=== PATIENT | female | born 1955 | race African-American/Black ===

== ENCOUNTER → 2019-06-06 | Day surgery (SDC) | payer OTHER ==
[~2019-06-06] VITALS: Ht 160 cm; Wt 83.0 kg
[~2019-06-06] MED LIST: ADULT ASPIRIN R81 MG PO; ASA81BEC PO; CARDIZEM SR 60M60 MG PO; COZAAR 25 MG TA25 M1 PO; CYCLOBENZAPRINE5 MG PO; GABAPENTIN600 M1 PO; NITROSTAT0.4 M1 SUBLING; OMEPRAZOLE 20 M20 M1 PO; PERCOCET 7.5-31 EAC1 PO; PLAQUENIL200 MG PO; TAMBOCOR 100 M100 M1 PO; VENLAFAXINE HC150 M1 PO; VOLTAREN GEL 1100 G2 TOP
--- NOTE | ~2019-06-06 | O ---
[facility] [place] [address] OPERATIVE REPORT Name: TOBIAS PIRES Room #: REG [facility].#: [id number] Admission: 06/06/19 Attend Phys: Samuel Richardson MD Discharge: Date of : 59 Report #: [id number] THIS REPORT FOR: cc: Lucia Panchal, Samuel Whitmore MD ~ CC: Samuel Panchal DATE OF SERVICE: 06/06/2019 PREOPERATIVE DIAGNOSIS: Right talonavicular and subtalar joint osteoarthritis. POSTOPERATIVE DIAGNOSIS: Right talonavicular and subtalar joint osteoarthritis. PROCEDURE: Right talonavicular and subtalar arthrodesis. SURGEON: Dr. Samuel Richardson. APPRENTICESHIP REPRESENTATIVE: Abeba Cotton. ANESTHESIA: General. ESTIMATED BLOOD LOSS: Minimal. DRAINS: No drains. TOURNIQUET TIME: One hour. COMPLICATIONS: There were no complications. DESCRIPTION OF PROCEDURE: The patient brought to the operating room where she was placed under general anesthesia. Once under adequate general anesthesia, her right lower extremity was prepped and draped in sterile manner. The extremity was elevated, exsanguinated, tourniquet placed 300 mmHg. A lateral incision 3 cm in length was made over the sinus tarsi. This was dissected down through soft tissue to the lateral sinus tarsi. The joint capsule was then incised and the fat pad elevated exposing the subtalar joint. Subtalar joint was then prepared in a sequential manner removing any cartilage from the joint with osteotomes, curettes and subsequently a bur to prepare the joint. Once completed, a dorsal incision 4 cm in length was made overlying the talonavicular joint. This was dissected down through soft tissue to the dorsum of the talonavicular joint. The osteophytes were removed. The talonavicular joint was then prepared utilizing osteotomes, curettes and a emme in sequential fashion to prepare the joint. The joint was then fenestrated as well with a K-wire. The wounds were then irrigated copiously. Signafuse graft was then placed in the [facility] [address] [place] [address] OPERATIVE REPORT Name: TOBIAS PIRES Room #: REG [facility]..#: [id number] Admission: 06/06/19 Attend Phys: Samuel Richardson MD Discharge: Date of : 59 Report #: [id number] subtalar joint and the talonavicular joints. Fixation across the joints was then achieved with two 7.3 mm cannulated screws placed across the subtalar joint. Three 4.5 mm cannulated screws were placed across the talonavicular joint. Fluoroscopy was used throughout the case to verify the position to be satisfactory. Once complete, the wounds were irrigated copiously and closed with 2-0 Vicryl in the deep and subcutaneous tissues and rose were used for the skin. The wounds were dressed with Xeroform, 4 x 4s, and sterile soft compressive dressing was placed. Tourniquet was let down at approximately 1 hour. Toes were pink and warm with good capillary refill. There were no complications from the procedure. The patient tolerated the procedure well and went to the recovery room without incident. By: [id number] Samuel Richardson MD /nt
[2019-06-06 08:51] VITALS: BP 140/77
[2019-06-06 13:04] VITALS: BP 140/77
== END | disposition home or self-care (01) ==
LOC: OR 08:17
DX: M19.071 Primary osteoarthritis, right ankle and foot (principal); I10 Essential (primary) hypertension; I25.2 Old myocardial infarction; I48.91 Unspecified atrial fibrillation; D64.9 Anemia, unspecified; K21.9 Gastro-esophageal reflux disease without esophagitis; Z98.890 Other specified postprocedural states; Z79.899 Other long term (current) drug therapy; Z98.84 Bariatric surgery status; Z88.8 Allergy status to other drugs, medicaments and biological substances
CPT/HCPCS: 50010; 50101; 50386; 50679; 51412; 51495; 53341; 56524; 57091; 57180; 57213; 62110; 62900; 70005